=== PATIENT | male | born 1955 | race Caucasian/White ===

== ENCOUNTER 2018-06-13 16:03 | Observation (INO) | payer BC ==
[2018-06-13 16:43] LABS: Hematocrit 38.5 % (42-50); Hemoglobin 13.3 gm/dl (12.5-18.0); Mean Cell Volume 97.7 fl (78-100); Mean Corpuscular Hgb Concent. 34.5 g/dl (32-36); Mean Platelet Volume 10.2 fl (6-9.5); Platelet Count 407 K/mm3 (150-450); Red Blood Count 3.94 M/mm3 (4.1-5.6); Red Cell Distribution Width 14.2 % (11.5-14.0); White Blood Count 8.7 K/mm3 (4.0-10.5)
[2018-06-13 16:44] LABS: Mean Corpuscular Hemoglobin 33.7 pg (26-32)
[2018-06-13 16:45] LABS: Lactic Acid 4.5 (0.4-2.0)
[2018-06-13] MEDS ORDERED: Sodium Chloride 0.9% 1000 ML 1,000 ML IV SCH (17:00)
[2018-06-13 17:14] LABS: ALBUMIN 3.8 g/dL (3.5-5.0); ALKALINE PHOSPHATASE 122 U/L (38-126); ANION GAP 17.7 MEQ/L (5-15); BLOOD UREA NITROGEN 19 mg/dL (9-20); CHLORIDE 96 mmol/L (98-107); Calcium 8.7 mg/dL (8.4-10.2); Carbon Dioxide 25 mmol/L (22-30); Creatinine 1 1.14 mg/dL (0.66-1.25); Glucose 123 mg/dL (74-106); NT PRO BNP 3030 pg/mL (0-900); Potassium 3.1 mmol/L (3.5-5.1); SGOT/AST 158 U/L (17-59); SGPT/ALT 93 U/L (0-50); SODIUM 136 mmol/L (137-145); Total Protein 7.7 g/dL (6.3-8.2)
[2018-06-13 17:16] LABS: TROPONIN 0.047 ng/mL (0.000-0.034)
[2018-06-13 17:36] LABS: ATYPICAL LYMPHS 3 %; Eosinophil 2 % (0.00-3.0); Lymphocytes 4 % (24-44); Monocyte 7 % (0.0-12.0); Neutrophils 84 % (36.-66.); Platelet Estimate NORMAL (NORMAL); Total Cells Counted 100
[2018-06-13] MEDS ORDERED: TYLENOL 325 MG PO PRN (17:42)
[2018-06-13] MEDS ORDERED: ATARAX 25 MG PO PRN (17:49)
[2018-06-13] MEDS: D5W/0.45NS W/ 20mEq KCl 1000 ML 1,000 ML IV SCH (18:21)
[2018-06-14] MEDS ORDERED: PERCOCET TABLET 5/325MG ONE (01:26)
[2018-06-14] MEDS: PERCOCET TABLET 5/325MG PO PRN ×2 (01:29→09:28)
[2018-06-14] MEDS ORDERED: Sodium Chloride 0.9% 1000 ML 1,000 ML ONE (02:24)
[2018-06-14] MEDS: D5W/0.45NS W/ 20mEq KCl 1000 ML 1,000 ML IV SCH (02:30)
[2018-06-14] MEDS ORDERED: ENOXAPARIN SODIUM SQ SCH (10:00)
[2018-06-14] MEDS ORDERED: PLAVIX 75 MG Tablet PO SCH (10:00)
[2018-06-14] MEDS ORDERED: ECOTRIN 81 MG PO SCH (10:00)
[2018-06-14 12:53] VITALS: BP 126/91; PULSE 87; O2SAT 96
--- NOTE | 2018-06-17 10:48 | SSS ---
DISCHARGE DIAGNOSES: 1) PROFOUND HYPOTENSION. 2) DEHYDRATION. 3) RECENT HIP FRACTURE. 4) CORONARY ARTERY DISEASE. HISTORY: The patient is a 62 year-old white male, a new patient to me seen on 06/13/2018 in the office. On his evaluation the patient had recently been discharged from [facility] having had a hip fracture on the right side with severe bruising. He apparently had a complicated medical history there where he developed pneumonia. He also had question of elevated D-dimer which greatly concerned the patient may need a cardiac stent. Apparently he was negative for pulmonary emboli although he was placed on aspirin, Plavix and Lovenox subcu upon his discharge home. The patient was seen in follow up by me for his first evaluation. In the office he had a blood pressure in the 80's and after talking for a while he got worse during his visit and actually had blood pressure measuring with systolic of 74. He was quite diaphoretic and had a near syncopal episode. He did get to feeling somewhat better after we just continued to observe him and just let him chill out. We afterwards brought him over to the hospital for admission for IV fluids and close monitoring. The patient has done well overnight. PHYSICAL EXAMINATION: He is afebrile. His blood pressure actually keysha at one point to 167/89 with a pulse ox of 98% on 4 liters nasal cannula, respiratory rate 19, pulse 83. HEENT: Normocephalic, atraumatic. He did have some duskiness around his nose. He is wearing oxygen per nasal cannula device. He was instructed to take deep breaths through his nose to keep his oxygen levels up. Oropharynx is pink and moist. NECK: Supple without lymphadenopathy, thyromegaly or JVD. CHEST: Essentially clear. HEART: Regular rate and rhythm. No murmurs were heard. ABDOMEN: Scaphoid. No palpable masses. EXTREMITIES: There is a large bruise and scar over the right hip from where he had recent surgery. He has previously also had removal of right second toe and there is still an escar present over the top dorsum of the foot. He has no cyanosis otherwise in his extremities. No clubbing or significant edema was noted. LAB DATA AND TESTS: D-dimer elevated at 1,586 but this was previously known to be elevated at [facility]. His evaluation there was negative for pulmonary embolus. He had a lactic acid on initial evaluation at 4.5 but by the next morning was down to 1.1 after IV fluid hydration. The patient's hemoglobin was 13.3, white blood cell count 8,700, PLT count 407,000. His metabolic panel showed a sugar of 123, BUN 19, creatinine 1.14. His sodium was 136, potassium somewhat low at 3.1. His total bilirubin was slightly elevated at 1.4, AST was 158, ALT 93. His troponin was elevated at 0.047. ProBNP was also elevated at 3,030. The next check on his troponins showed it decreased to 0.033 which is essentially at the upper limits of normal in our lab. HOSPITAL COURSE: By the next morning the patient was feeling much better. He is now ready for discharge home to the care of his family. He said someone will be there to watch over him over the next several days. He has an appointment to see his front office secretary in two days for follow up. He is also still taking Levaquin for the previous discharge for pneumonia at [facility]. The patient will be given an appointment to see me in follow up in the next several days after his follow up appointments with his front office secretary and orthopedic surgeon evaluations at [facility]'s facility.
== END 2018-06-14 12:40 | disposition home or self-care (01) ==
LOC: MED SURG 16:03
PROVIDERS: ADMIT Family Medicine; ATTEND Family Medicine
DX: I95.9 Hypotension, unspecified (principal); E86.0 Dehydration; Z98.890 Other specified postprocedural states; I25.10 Atherosclerotic heart disease of native coronary artery without angina pectoris; Z99.81 Dependence on supplemental oxygen; Z79.899 Other long term (current) drug therapy
CPT/HCPCS: 36415; 80053; 83605; 83880; 84484; 85025; 85379; 93268; 94760; G0378; J1650; A9270-GY

== ENCOUNTER 2018-10-17 00:13 | Emergency (ER) | payer BC ==
--- NOTE | 2018-10-17 00:30 | ERPHSYRPT ---
- History of Present Illness Time Seen by Provider: 10/17/18 00:15 Source: patient, EMS Physician History: 63 y/o white male with h/o htn on lisinopril and clonidine presents with high blood pressure and headache. pts headache has resolved. pt arrived via ems. pt took all his meds as prescribed. pt was reading, fell asleep then woke up with a headache. took his bp and was 180s/100s. ems called and pt brought to ED. pt denies cp, denies abd pain and denies head trauma Timing/Duration: today Severity: moderate Associated Symptoms: nausea (resolved), headaches (resolved), No vomiting, No shortness of breath Allergies/Adverse Reactions: No Known Drug Allergies Allergy (Unverified 03/10/16 16:45) Home Medications: Aspirin 81 gm Chew [Baby Aspirin 81 mg Chew] 81 mg PO DAILY 03/10/16 [ History] Clonidine HCl 0.1 mg [Catapres 0.1 MG] 0.1 mg PO DAILY 03/10/16 [History] Lisinopril 10 mg [Zestril 10 MG] 10 mg PO DAILY 03/10/16 [History] Oxycodone HCl/Acetaminophen [Oxycodone-Acetaminophen 5-325] 1 each PO QID PRN [History] Pravastatin Sodium 10 mg PO DAILY 03/10/16 [History] Hx Influenza Vaccination/Date Given: No Hx Pneumococcal Vaccination/Date Given: No - Review of Systems Constitutional: No Symptoms Eyes: No Symptoms Ears, Nose, & Throat: No Symptoms Respiratory: No Symptoms Cardiac: No Symptoms Abdominal/Gastrointestinal: No Symptoms Genitourinary Symptoms: No Symptoms Musculoskeletal: No Symptoms Skin: No Symptoms Neurological: Headache Psychological: No Symptoms Endocrine: No Symptoms Hematologic/Lymphatic: No Symptoms Immunological/Allergic: No Symptoms All Other Systems: Reviewed and Negative - Past Medical History Pertinent Past Medical History: No Neurological History: TIA Cardiac History: Deep Vein Thrombosis, Hypertension Respiratory History: COPD Endocrine Medical History: No Pertinent History Musculoskeletal History: Fractures GI Medical History: No Pertinent History History: No Pertinent History Psycho-Social History: Anxiety Male Reproductive Disorders: No Pertinent History Other Medical History: PVD - Past Surgical History Past Surgical History: Yes (Hip Surgery) Neuro Surgical History: No Pertinent History Cardiac: No Pertinent History Respiratory: No Pertinent History Gastrointestinal: No Pertinent History Genitourinary: No Pertinent History Musculoskeletal: No Pertinent History Male Surgical History: No Pertinent History Other Surgical History: right femoral bypass - Social History Smoking Status: Former smoker How long have you smoked: 40 Exposure to second hand smoke: No Drug Use: marijuana Patient Lives Alone: Yes - Nursing Vital Signs Nursing Vital Signs: Initial Vital Signs Temperature 97.4 F 10/17/18 00:15 Pulse Rate 70 10/17/18 00:15 Respiratory Rate 18 10/17/18 00:15 Blood Pressure 184/117 10/17/18 00:15 O2 Sat by Pulse Oximetry 100 10/17/18 00:15 Pain Scale Pain Intensity 0 - Physical Exam General Appearance: no apparent distress, alert, anxiety Eye Exam: PERRL/EOMI, eyes nml inspection Ears, Nose, Throat Exam: normal ENT inspection, moist mucous membranes Neck Exam: normal inspection, non-tender, supple, full range of motion Respiratory Exam: normal breath sounds, lungs clear, airway intact, No chest tenderness, No respiratory distress Cardiovascular Exam: regular rate/rhythm, normal heart sounds, normal peripheral pulses Gastrointestinal/Abdomen Exam: soft, normal bowel sounds, No tenderness Rectal Exam: not done Back Exam: normal inspection, normal range of motion, No CVA tenderness, No vertebral tenderness Extremity Exam: normal inspection, normal range of motion, pelvis stable Neurologic Exam: alert, oriented x 3, cooperative, sewage plant operator II-XII nml as tested, normal mood/affect, nml cerebellar function, nml station & gait, sensation nml Skin Exam: normal color, warm, dry Lymphatic Exam: No adenopathy SpO2 Interpretation: normal O2 Delivery: Room Air - Course Nursing assessment & vital signs reviewed: Yes Ordered Tests: Active Orders 24 hr Category Date Time Status Revenue Director STAT Care 10/17/18 00:32 Active IV Insertion STAT Care 10/17/18 00:32 Active Pulse Oximetry (ED) STAT Care 10/17/18 00:32 Active HEAD WITHOUT CONTRAST [CT] Stat Exams 10/17/18 00:45 Taken BMP Stat Lab 10/17/18 00:40 Completed CBC W DIFF Stat Lab 10/17/18 00:40 Completed Medication Summary Discontinued Medications Generic Name Dose Route Start Last Admin Trade Name Freq PRN Reason Stop Dose Admin Lorazepam 1 mg 10/17/18 00:33 10/17/18 01:11 Ativan 2 Mg/1 Ml Vial IV 10/17/18 00:34 1 mg STAT ONE Administration Lorazepam Confirm 10/17/18 01:07 Ativan 2 Mg/1 Ml Vial Administered 10/17/18 01:08 Dose 2 mg .ROUTE .STK-MED ONE Lab/Rad Data: Laboratory Result Diagrams 10/17/18 00:40 10/17/18 00:40 Laboratory Results 10/17/18 10/17/18 Range/Units 00:40 00:40 WBC 6.0 (4.0-10.5) K/mm3 RBC 4.04 L (4.1-5.6) M/mm3 Hgb 14.4 (12.5-18.0) gm/dl Hct 39.9 L (42-50) % MCV 98.8 (78-100) fl MCH 35.6 H (26-32) pg MCHC 36.1 H (32-36) g/dl RDW 12.5 (11.5-14.0) % Plt Count 173 (150-450) K/mm3 MPV 10.6 H (6-9.5) fl Gran % 58.1 (36.0-66.0) % Eos # (Auto) 0.18 (0-0.5) Absolute Lymphs (auto) 1.73 (1.0-4.6) Absolute Monos (auto) 0.55 (0.0-1.3) Lymphocytes % 29.0 (24.0-44.0) % Monocytes % 9.2 (0.0-12.0) % Eosinophils % 3.0 (0.00-5.0) % Basophils % 0.7 (0.0-0.4) % Absolute Granulocytes 3.46 (1.4-6.9) Basophils # 0.04 (0-0.4) Sodium 129 L (137-145) mmol/L Potassium 3.8 (3.5-5.1) mmol/L Chloride 92 L (98-107) mmol/L Carbon Dioxide 26 (22-30) mmol/L Anion Gap 15.4 H (5-15) MEQ/L BUN 4 L (9-20) mg/dL Creatinine 0.76 (0.66-1.25) mg/dL Estimated GFR > 60.0 ML/MIN Glucose 107 H (74-106) mg/dL Calcium 9.1 (8.4-10.2) mg/dL - Progress Progress: improved Progress Note: 10/17/18 01:40 ct head-no acute intracranial process Counseled pt/family regarding: lab results, diagnosis, need for follow-up, rad results - Departure Departure Disposition: Home Clinical Impression: Hypertension, Headache Condition: Stable Critical Care Time: No Referrals: ANJU MARTINEZ [Primary Care Provider] - Additional Instructions: follow up with primary doctor for further management
[2018-10-17] MEDS ORDERED: Ativan 2 MG/1 ML VIAL IV ONE (00:33)
[2018-10-17 00:53] LABS: BASOPHIL % 0.7 % (0.0-0.4); Basophil (Absolute #) 0.04 (0-0.4); Eosinophil (Absolute #) 0.18 (0-0.5); Granulocyte Absolute (ANC) 3.46 (1.4-6.9); Granulocytes % 58.1 % (36.0-66.0); Hematocrit 39.9 % (42-50); Hemoglobin 14.4 gm/dl (12.5-18.0); Lymphocyte (Absolute #) 1.73 (1.0-4.6); Mean Cell Volume 98.8 fl (78-100); Mean Corpuscular Hemoglobin 35.6 pg (26-32); Mean Corpuscular Hgb Concent. 36.1 g/dl (32-36); Mean Platelet Volume 10.6 fl (6-9.5); Monocyte (Absolute #) 0.55 (0.0-1.3); Monocytes % 9.2 % (0.0-12.0); Platelet Count 173 K/mm3 (150-450); Red Blood Count 4.04 M/mm3 (4.1-5.6); Red Cell Distribution Width 12.5 % (11.5-14.0)
[2018-10-17 01:03] LABS: ANION GAP 15.4 MEQ/L (5-15); BLOOD UREA NITROGEN 4 mg/dL (9-20); CHLORIDE 92 mmol/L (98-107); Calcium 9.1 mg/dL (8.4-10.2); Carbon Dioxide 26 mmol/L (22-30); Creatinine 1 0.76 mg/dL (0.66-1.25); Glucose 107 mg/dL (74-106); Potassium 3.8 mmol/L (3.5-5.1); SODIUM 129 mmol/L (137-145)
[2018-10-17] MEDS ORDERED: Ativan 2 MG/1 ML VIAL ONE (01:07)
[2018-10-17 01:58] VITALS: BP 133/77; PULSE 65; O2SAT 100
--- NOTE | 2018-10-17 09:35 | XRAY ---
Indication: Headache. Patient on blood thinners. Multiple contiguous axial images obtained through the head without contrast. Comparison: March 10, 2016. New finding small focal encephalomalacia in the anterior right temporal lobe favoring old infarct. No acute intracranial hemorrhage, hydrocephalus, or mass effect. Fourth ventricle is midline. Reddy-white matter differentiation preserved. Bony calvarium intact. Mild mucosal thickening of both ethmoid and right maxillary sinuses. Mastoid air cells are clear. Impression: 1. 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 2. No acute intracranial abnormalities. 3. Incidental paranasal sinus disease. Comment: Preliminary interpretation was made by [facility]. No critical discrepancy. CT DI 67.60
== END 2018-10-17 01:58 | disposition home or self-care (01) ==
LOC: ED 00:13
DX: I10 Essential (primary) hypertension (principal); R51 Headache
CPT/HCPCS: 36000; 36415; 70450; 80048; 85025; 93041; 96374; 99284; J2060